=== PATIENT | female | born 1970 | race Two or more races ===

== ENCOUNTER 2021-05-26 11:38 | Outpatient (CLI) | payer OTHER | END 2021-05-26 23:59 | disposition home or self-care (01) | LOC: LAB 11:38 | PROVIDERS: ATTEND Specialist | DX: Z01.818 Encounter for other preprocedural examination (principal); Z20.822 Contact with and (suspected) exposure to COVID-19 | CPT/HCPCS: C9803; U0003 ==

== ENCOUNTER 2021-05-31 05:32 | Day surgery (SDC) | payer OTHER ==
[~2021-05-31] VITALS: Ht 160 cm; Wt 87.1 kg
[2021-05-31] MEDS ORDERED: LIDOCAINE 1% INJ 50 ML MDV IJ ONE (06:21)
[2021-05-31] MEDS ORDERED: methylPREDNISolone ACETATE 80 MG/ML VIAL ONE (06:22)
--- NOTE | 2021-05-31 07:47 | NUR ---
MS/TELE/RN PATIENT WAS ADMITTED FOR DAY SURGERY BY DR. VITAL. PATIENT WAS AWAKE, ALERT, ORIENTED, AMBULATORY, SURGERY PAPER WORKS DONE, CONSENT SIGNED BY THE PATIENT, IV WAS INSERTED, PATIENT WAS PICKED UP BY OR NURSE TO SURGERY.
[2021-05-31] MEDS ORDERED: FENTANYL PF 100MCG/2ML AMPUL ONE (08:17)
[2021-05-31] MEDS ORDERED: HYDROMORPHONE 1 MG/1 ML DISP.SYRIN ONE (09:10)
[2021-05-31 12:03] VITALS: BP 152/91
== END 2021-05-31 23:00 | disposition home or self-care (01) ==
LOC: DS 05:32 → MED 05:33 → UNDOADMIN 05:33 → MED 05:53 → UNDODISIN 12:40 → DS 23:00
PROVIDERS: ATTEND Specialist
DX: S83.282A Other tear of lateral meniscus, current injury, left knee, initial encounter (principal); M22.42 Chondromalacia patellae, left knee; W19.XXXA Unspecified fall, initial encounter; Y93.89 Activity, other specified; Y92.89 Other specified places as the place of occurrence of the external cause; Y99.8 Other external cause status
CPT/HCPCS: 29881; 84703; 97116; 97161; 97530; A4217; A6253; J0690; J1040; J1100; J1170; J2405; J2704; J3010; J3490 ×2; G0378